=== PATIENT | female | born 1960 | race Hispanic/Latino ===

== ENCOUNTER 2024-01-25 12:38 | Emergency (ER) | payer OTHER ==
[2024-01-25 13:13] LABS: #Basophils 0.06 10x3/uL (0.0-0.2); #Eosinphils 0.35 10x3/uL (0.0-0.5); #Monocytes 0.54 10x3/uL (0.0-1.1); #Neutrophils 6.51 10x3/uL (1.5-8.4); %Basophils 0.6 % (0.0-2.0); %Eosinophils 3.7 % (0.0-6.0); %Lymphocytes 20.7 % (18.0-47.0); %Monocytes 5.7 % (0.0-10.0); %Neutrophils 69.1 % (40.0-75.0); Hemoglobin 14.6 g/dL (12.0-15.5); Mean Corpuscular HGB CONC 33.2 g/dL (32.0-36.0); Mean Corpuscular Hemoglobin 26.6 pg (27.0-33.0); Mean Corpuscular Volume 80.3 fL (81.6-98.3); Mean Platelet Volume 9.3 fL (7.4-10.4); Platelet Count 323 10x3/uL (150-450); RBC Distribution Width 13.2 % (11.5-14.5); Red Blood Cell (RBC) Count 5.48 10x6/uL (3.90-5.03); White Blood Cell (WBC) Count 9.4 10x3/uL (3.5-10.5)
[2024-01-25 13:29] LABS: ALT (SGPT) 16 U/L (8-55); AST (SGOT) 17 U/L (5-34); Albumin 3.8 g/dL (3.4-4.8); Alkaline Phosphatase 67 U/L (40-110); Anion Gap 16 mmol/L (10-20); BUN (Urea Nitrogen) 12 mg/dL (9.8-20.1); Bilirubin, Total 0.5 mg/dL (0.2-1.2); Calc. Creatinine Clearance 0 mL/min (70-130); Calcium 9.8 mg/dL (7.8-10.44); Carbon Dioxide 21 mmol/L (23-31); Chloride 105 mmol/L (98-107); Estimated GFR 76; Globulin 3.1 g/dL (2.4-3.5); Glucose 158 mg/dL (80-115); Potassium 4.1 mmol/L (3.5-5.1); Protein, Total 6.9 g/dL (5.8-8.1); Sodium 138 mmol/L (136-145)
[2024-01-25 13:31] LABS: Troponin I Less than 0.010 ng/mL (< 0.028)
[2024-01-25] MEDS ORDERED: Aspirin Chewable 81 MG TAB ONE (13:51)
[2024-01-25] MEDS ORDERED: Ibuprofen 200 MG TAB ONE (15:32)
== END 2024-01-25 15:40 | disposition home or self-care (01) ==
LOC: CSHERS 12:38
DX: R07.89 Other chest pain (principal); E11.9 Type 2 diabetes mellitus without complications; E03.9 Hypothyroidism, unspecified; I10 Essential (primary) hypertension; E78.5 Hyperlipidemia, unspecified; C95.01 Acute leukemia of unspecified cell type, in remission; Z55.6 Problems related to health literacy
CPT/HCPCS: 71045; 80053; 83880; 84484; 85025; 85379; 93005